=== PATIENT | female | born 1965 | race Two or more races ===

== ENCOUNTER 2017-03-07 22:13 | Emergency (ER) | payer MEDICAID ==
[~2017-03-07] VITALS: Ht 170.2 cm; Wt 122.5 kg
[2017-03-07 22:29] VITALS: BP 162/96
== END 2017-03-08 04:41 | disposition home or self-care (01) ==
LOC: ER 22:13
DX: H61.22 Impacted cerumen, left ear (principal); F17.210 Nicotine dependence, cigarettes, uncomplicated

== ENCOUNTER 2023-06-03 22:48 | Emergency (ER) | payer MEDICAID ==
[~2023-06-03] VITALS: Ht 170.2 cm; Wt 150.1 kg
[2023-06-04] MEDS ORDERED: HYDR-4902 PO ×2 (00:54→13:06)
[2023-06-04] MEDS ORDERED: CLIN-203 PO ×2 (00:54→13:06)
[2023-06-04] MEDS ORDERED: BACDST PO ×2 (00:54→13:06)
[2023-06-04 02:00] VITALS: BP 142/89; PULSE 89; RESP 20; TEMP 98.9; O2SAT 98
[2023-06-04] MEDS: HYDROcodone-ACET 5/325MG TAB PO ONE (02:11)
[2023-06-04] MEDS: CLINDAMYCIN HCL 150 MG CAP PO ONE (02:12)
[2023-06-04] MEDS: cefTRIAXone SOD 1,000 MG VL IM ONE (02:12)
== END 2023-06-04 02:23 | disposition home or self-care (01) ==
LOC: ER 22:48
DX: K04.7 Periapical abscess without sinus (principal); K02.9 Dental caries, unspecified; L03.211 Cellulitis of face; F17.210 Nicotine dependence, cigarettes, uncomplicated
CPT/HCPCS: 71045; 96372; 99283; J0696

== ENCOUNTER 2025-01-16 00:16 | Emergency (ER) | payer MEDICAID ==
[~2025-01-16] VITALS: Ht 172.7 cm; Wt 154.5 kg
[~2025-01-16 00:16] MED LIST: BACDST PO; CLIN-203 PO; HYDR-4902 PO
[2025-01-16 00:22] VITALS: BP 150/106; PULSE 120
[2025-01-16 00:52] VITALS: RESP 18; TEMP 98.3; O2SAT 96
[2025-01-16] MEDS ORDERED: ACET500T58 PO (01:03)
--- NOTE | 2025-01-16 01:04 | ED.PDOC ---
Musculoskeletal HPI Comments 60-year-old female presents to ER with complaints of left foot pain x1 hour. Patient reports she started experiencing 5/10 pain/swelling to left foot with radiation towards the left ankle 1 hour prior to arrival to ER s/p rolling her left foot inwards off a curb while attempting to put of [place] decorations. Denies use of medications for current symptoms and states she has not been able to bear weight on left leg due to left foot pain. Denies numbness/tingling or any further symptoms/complaints Chief Complaint: Lower Extremity Time Seen by MD: 00:34 Primary Care Provider: Kavon Reviewed Notes: Nurses Notes, Medications, Allergies Allergies: Coded Allergies: NO KNOWN ALLERGIES (Unverified , 09/09/13) Home Meds Active Scripts Acetaminophen (Acetaminophen) 500 Mg Tab, 500 MG PO Q4HPRN, #30 TAB 0 Refills Prov:SARA GASCA 01/16/25 Hydrocodone-Acetaminophen (Hydrocodone Bitartrate/AC 5-325 mg) 1 Tab Tab, 1 TAB PO Q6HPRN PRN, #8 TAB as needed for pain Prov:LULU [facility] 06/04/23 Sulfamethoxazole W/Trimethopri (Bactrim Ds Tablet) 1 Tab Tb, 1 TAB PO BID for 10 Days, #20 TAB Prov:[facility]U [facility] 06/04/23 Clindamycin HCl (Clindamycin Hydrochloride) 300 Mg Cap, 1 CAP PO QID for 10 Days, #40 CAP Prov:L[facility]U [facility] 06/04/23 Information Source: Patient Mode of Arrival: Wheelchair Past Medical History PAST MEDICAL HISTORY: HIV Surgical History: Denies all surgeries SPA ASSOCIATE History: No Pertinent SPA ASSOCIATE History Family History Family History: Unknown Social History Smoker: Cigarettes, Less Than 1 Pack/Day Alcohol: Denies ETOH Use Drugs: Denies Drug Use Lives In: Home Constitutional: denies: chills, diaphoresis, fatigue, fever, malaise, sweats, weakness, others EENTM: denies: blurred vision, double vision, ear bleeding, ear discharge, ear drainage, ear pain, ear ringing, eye pain, eye redness, hearing loss, mouth pain, mouth swelling, nasal discharge, nose bleeding, nose congestion, nose pain, photophobia, tearing, throat pain, throat swelling, voice changes, others Respiratory: denies: cough, hemoptysis, orthopnea, SOB at rest, shortness of breath, SOB with excertion, stridor, wheezing, others Cardiovascular: denies: chest pain, dizzy spells, diaphoresis, Dyspnea on ex ertion, edema, irregular heart beat, left arm pain, lightheadedness, palpitations, PND, syncope, others Gastrointestinal: denies: abdomen distended, abdominal pain, blood streaked bowels, constipated, diarrhea, dysphagia, difficulty swallowing, hematemesis, melena, nausea, poor appetite, poor fluid intake, rectal bleeding, rectal pain, vomiting, others Genitourinary: denies: abnormal vagina bleeding, burning, dyspareunia, dysuria, flank pain, frequency, hematuria, incontinence, pain, , vagina discharge, urgency, others Neurological: denies: dizziness, fainting, headache, left sided numbness, left sided weakness, numbness, paresthesia, pre-existing deficit, right sided numbness, right sided weakness, seizure, speech problems, tingling, tremors, weakness, others Musculoskeletal: reports: others (As stated in HPI) Integumetry: reports: others (As stated in HPI) Allergic/Immunocompromised: denies: Difficulty Healing, Frequent Infections, Hives, Itching, others Hematologic/Lymphatic: denies: anemia, blood clots, easy bleeding, easy bruising, swollen glands, others Endocrine: denies: excessive hunger, excessive sweating, excessive thirst, excessive urination, flushing, intolerance to cold, intolerance to heat, unexplained weight gain, unexplained weight loss, others Psychiatric: denies: anxiety, bipolar disorder, depression, hopeless, panic disorder, schizophrenia, sleepless, suicidal, others Physical Exam General Appearance: No Apparent Distress, Obese HEENT: PERRL/EOMI Neck: Full Range of Motion, Non-Tender, Normal Respiratory: Chest Non-Tender, Lungs Clear, No Accessory Muscle Use, No Respiratory Distress, Normal Breath Sounds Cardiovascular: No Murmur, No Gallop, Regular Rate/Rhythm Breast Exam: Deferred Gastrointestinal: NOT DONE Genitalia: Deferred Pelvic: Deferred Rectal: Deferred Extremities: No calf tenderness, Normal capillary refill, Normal range of motion Musculoskeletal : Extremity Location: Foot (TTP/mild swelling noted to lateral aspect of left foot and centralized to plantar surface of left foot. Minimal TTP to left medial malleolus noted. No further skin changes noted. Patient favors right leg on ambulation due to pain localized to left foot/left ankle) Neurologic: Alert, No Motor Deficits, Normal Affect, Normal Mood, No Sensory Deficits Cerebellar Function: Normal Reflexes: Normal Skin: Dry, Normal Color, Warm Peripheral Pulses: 2+ dorsalis pedis (R), 2+ dorsalis pedis (L), 2+ Radial (R), 2+ Radial (L), 2+ Brachial (R), 2+ Brachial (L) Lymphatic: No Adenopathy Was a procedure done? Was a procedure done?: No Sedation Sedation?: No Differential Diagnosis EXT Differential Diagnosis: Fracture, Dislocation, Laceration, Neurovascular injury X-Ray, Labs, Meds, VS Vital Signs Date Time Temp Pulse Resp B/P (MAP) Pulse Ox O2 Delivery O2 Flow Rate FiO2 01/16/25 00:52 98.3 18 96 98.3 01/16/25 00:52 Room Air* 0 21 01/16/25 00:22 98.3 120 18 150/106 96 98.3 PATIENT: APOLLO BAE LACCT: [id number]: [id number] : 1965 LOC: ER ROOM / BED: / AGE / SEX: 60 / F ADM STATUS: REG ER SERVICE ORDERING PHYSICIAN: SARA GASCA PROCEDURE(s): LFOOT - L FOOT 3 VIEW XRAY REASON: left foot pain ORDER NUMBER(s): [id number], ACCESSION NUMBER(s): [id number] EXAM: XY L FOOT 3 VIEW XRAY HISTORY: left foot pain COMPARISON: None TECHNIQUE: Three views of the left foot were performed. FINDINGS/IMPRESSION: No acute fracture or dislocation are identified about the left foot. Nonspecific mild diffuse subcutaneous swelling. Degenerative changes about the foot with a plantar enthesophyte noted. ATED BY: ANGEL MOSLEY MD DICTATED DATE/TIME: 01/16/25128 SIGNED BY: ANGEL MOSLEY MD SIGNED DATE/TIME: 01/16/25128 CC: PATIENT: APOLLO BAE LACCT: [id number] UNIT: [id number] : 1965 LOC: ER ROOM / BED: / AGE / SEX: 60 / F ADM STATUS: REG ER SERVICE ORDERING PHYSICIAN: SARA GASCA PROCEDURE(s): LANKL - L ANKLE 3 VIEW REASON: left ankle pain ORDER NUMBER(s): [id number], ACCESSION NUMBER(s): [id number] CLINICAL HISTORY: left ankle pain TECHNIQUE: 3 views of the left ankle were obtained. COMPARISON: None FINDINGS/IMPRESSION: No acute fracture or dislocation is seen. The ankle mortise is intact. Mild nonspecific subcutaneous swelling about the ankle. ATED BY: ANGEL MOSLEY MD DICTATED DATE/TIME: 01/16/25127 SIGNED BY: ANGEL MOSLEY MD SIGNED DATE/TIME: 01/16/25127 CC: Left foot x-ray reviewed Left ankle x-ray reviewed Tye wrap applied Crutches ordered, patient educated on proper use Patient neurovascularly intact Advised on elevation and alternate ice on/off as needed for pain/swelling Advised to follow up with PCP and orthopedics in 1-2 days Patient verbalized understanding and agreeable with current plan of care Advised to return to ER immediately if symptoms worsen Images Reviewed?: Images reviewed and evaluated by me Time of 1ST Reevaluation: 00:34 Reevaluation 1ST: N/A Patient Education/Counseling: Diagnosis, Treatment, Prognosis, Need For Follow Up Family Education/Counseling: No Family Present Departure 1 Departure Time of Disposition: 01:02 Impression: Primary Impression: Sprain of left foot Qualified Codes: S93.602A - Unspecified sprain of left foot, initial encounter Additional Impression: Left ankle sprain Qualified Codes: S93.402A - Sprain of unspecified ligament of left ankle, initial encounter Disposition: 01 HOME / SELF CARE / HOMELESS Condition: Stable e-Prescriptions Acetaminophen (Acetaminophen) 500 Mg Tab 500 MG PO Q4HPRN, #30 TAB 0 Refills Prov: SARA GASCA 01/16/25 Discharged With: Friend Critical Care Note Critical Care Time?: No Stability Stability form required: No Heart Score Heart Score: Heart Score Response (Comments) Value History N/A 0 EKG N/A 0 Age N/A 0 Risk Factors N/A 0 Troponin N/A 0 Total 0 SARA GASCA Jan 16, 2025 01:04
--- NOTE | 2025-01-16 01:31 | DVH ---
EXAM: XY L FOOT 3 VIEW XRAY HISTORY: left foot pain COMPARISON: None TECHNIQUE: Three views of the left foot were performed. FINDINGS/IMPRESSION: No acute fracture or dislocation are identified about the left foot. Nonspecific mild diffuse subcutaneous swelling. Degenerative changes about the foot with a plantar enthesophyte noted.
--- NOTE | 2025-01-16 01:31 | DVH ---
CLINICAL HISTORY: left ankle pain TECHNIQUE: 3 views of the left ankle were obtained. COMPARISON: None FINDINGS/IMPRESSION: No acute fracture or dislocation is seen. The ankle mortise is intact. Mild nonspecific subcutaneous swelling about the ankle.
== END 2025-01-16 01:58 | disposition home or self-care (01) ==
LOC: ER 00:16
DX: S93.402A Sprain of unspecified ligament of left ankle, initial encounter (principal); S93.602A Unspecified sprain of left foot, initial encounter; F17.210 Nicotine dependence, cigarettes, uncomplicated; Z92.3 Personal history of irradiation; Z21 Asymptomatic human immunodeficiency virus [HIV] infection status; X50.1XXA Overexertion from prolonged static or awkward postures, initial encounter; Y93.89 Activity, other specified; Y92.89 Other specified places as the place of occurrence of the external cause; Y99.8 Other external cause status
CPT/HCPCS: 73610; 73630

== ENCOUNTER 2025-02-10 17:31 | Emergency (ER) | payer MEDICAID ==
[~2025-02-10] VITALS: Ht 170.2 cm; Wt 152.7 kg
[~2025-02-10 17:31] MED LIST changes: +ACET500T58 PO
[2025-02-10 17:32] VITALS: BP 128/94; RESP 18; TEMP 97.9; O2SAT 95
--- NOTE | 2025-02-10 17:41 | ECG ---
[facility] Test Date: 2025-02-10 Test Time: 17:39:36 Pat Name: APOLLO BAE Department: Room: Gender: F Dogman/Woman: ABDIRIZAK : 1965 Requested By: NERY DIAZ Order Number: [id number] Reading MD: Measurements Intervals [place] Rate: 109 P: 27 LA: 166 QRS: 13 QRSD: 98 T: 66 QT: 369 QTc: 498 Interpretive Statements Sinus tachycardia Low voltage, precordial leads Borderline prolonged QT interval Please click the below link to view image of tracing.
[2025-02-10 17:56] VITALS: PULSE 109
--- NOTE | 2025-02-10 17:56 | ED.PDOC ---
SOB-HPI HPI Comments This is a 60 year old female with past medical history of HIV (on ARVs) presenting to the ED with chief complaint of SOB. Patient reports that she has been experiencing SOB with associated nasal congestion and general malaise since 02/06/25. Patient relays that she has taken Mucinex with no relief noted. Patient denies any chest pain, fever, chills, N/V/D, abdominal pain, or headache. Chief Complaint: Shortness of Breath Time Seen by MD: 17:55 Primary Care Provider: Kavon Reviewed notes: Nurses Notes, Medications, Allergies Information Source: Patient Mode of Arrival: Ambulatory Severity: Moderate Timing: Days Duration: Since onset Context: At Rest PE Risk Factors: None History of: None Prehospital treatment: None Modifying Factors: Nothing Associated Signs and Symptoms: Cough, Nasal Congestion If cough with SOB: Non-Productive Past Medical History PAST MEDICAL HISTORY: HIV Surgical History: Denies all surgeries FILTER PRESS PUMPER History: No Pertinent FILTER PRESS PUMPER History Family History Family History: Reviewed,noncontributory to illness, Unknown Social History Smoker: Cigarettes, Less Than 1 Pack/Day Alcohol: Denies ETOH Use Drugs: Denies Drug Use Lives In: Home Constitutional: reports: malaise; denies: chills, diaphoresis, fatigue, fever, sweats, weakness, others EENTM: reports: nose congestion; denies: blurred vision, double vision, ear bleeding, ear discharge, ear drainage, ear pain, ear ringing, eye pain, eye redness, hearing loss, mouth pain, mouth swelling, nasal discharge, nose bl eeding, nose pain, photophobia, tearing, throat pain, throat swelling, voice changes, others Respiratory: reports: shortness of breath; denies: cough, hemoptysis, orthopnea, SOB at rest, SOB with excertion, stridor, wheezing, others Cardiovascular: denies: chest pain, dizzy spells, diaphoresis, Dyspnea on exertion, edema, irregular heart beat, left arm pain, lightheadedness, palpitations, PND, syncope, others Gastrointestinal: denies: abdomen distended, abdominal pain, blood streaked bowels, constipated, diarrhea, dysphagia, difficulty swallowing, hematemesis, melena, nausea, poor appetite, poor fluid intake, rectal bleeding, rectal pain, vomiting, others Genitourinary: denies: abnormal vagina bleeding, burning, dyspareunia, dysuria, flank pain, frequency, hematuria, incontinence, pain, , vagina discharge, urgency, others Neurological: denies: dizziness, fainting, headache, left sided numbness, left sided weakness, numbness, paresthesia, pre-existing deficit, right sided numbness, right sided weakness, seizure, speech problems, tingling, tremors, weakness, others Musculoskeletal: denies: back pain, gout, joint pain, joint swelling, muscle pain, muscle stiffness, neck pain, others Integumetry: denies: bruises, change in color, change in hair/nails, dryness, laceration, lesions, lumps, rash, wounds, others Allergic/Immunocompromised: denies: Difficulty Healing, Frequent Infections, Hives, Itching, others Hematologic/Lymphatic: denies: anemia, blood clots, easy bleeding, easy bruising, swollen glands, others Endocrine: denies: excessive hunger, excessive sweating, excessive thirst, excessive urination, flushing, intolerance to cold, intolerance to heat, unexplained weight gain, unexplained weight loss, others Psychiatric: denies: anxiety, bipolar disorder, depression, hopeless, panic disorder, schizophrenia, sleepless, suicidal, others All Other Systems: Reviewed and Negative Physical Exam General Appearance: No Apparent Distress, Normal HEENT: Normal ENT Inspection, Pharynx Normal, TMs Normal, Other (Nasal congestion) Neck: Full Range of Motion, Non-Tender, Normal, Normal Inspection Respiratory: Chest Non-Tender, Lungs Clear, No Accessory Muscle Use, No Respiratory Distress, Normal Breath Sounds Cardiovascular: No Edema, No JVD, No Murmur, No Gallop, Normal Peripheral Pulses, Regular Rate/Rhythm Breast Exam: Deferred Gastrointestinal: No Organomegaly, Non Tender, No Pulsatile Mass, Normal Bowel Sounds, Soft Genitalia: Deferred Pelvic: Deferred Rectal: Deferred Extremities: No calf tenderness, Normal capillary refill, Normal inspection, Normal range of motion, Non-tender, No pedal edema Musculoskeletal : Apperance: Normal Neurologic: Alert, parking attendant II-XII nml as Tested, No Motor Deficits, Normal Affect, Normal Mood, No Sensory Deficits Cerebellar Function: Normal Reflexes: Normal Skin: Dry, Normal Color, Warm Lymphatic: No Adenopathy EKG EKG : Pulse Rate (adult): 109 Cardiac Rhythm: ST Was a procedure done? Was a procedure done?: No Differential Dx Differential Diagnosis: Bronchitis, Pneumonia, Pharyngitis, URI X-Ray, Labs, Meds, VS Vital Signs Date Time Temp Pulse Resp B/P (MAP) Pulse Ox O2 Delivery O2 Flow Rate FiO2 02/10/25 17:56 109 02/10/25 17:39 109 02/10/25 17:32 97.9 110 18 128/94 95 97.9 Lab Test 02/10/25 18:03 Range/Units White Blood Count 6.0 4.4-10.8 10^3/uL Red Blood Count 5.00 4.0-5.20 10^6/uL Hemoglobin 13.9 12.2-16.2 g/dL Hematocrit 41.1 36.0-46.0 % Mean Corpuscular Volume 82.2 80.0-100.0 fL Mean Corpuscular Hemoglobin 27.8 L 28.0-32.0 pg Mean Corpuscular Hemoglobin Concent 33.8 32.0-36.0 g/dL Red Cell Distribution Width 14.0 11.8-14.3 % Platelet Count 336 140-450 10^3/uL Mean Platelet Volume 7.7 6.9-10.8 fL Neutrophils (%) (Auto) 58.3 37.0-80.0 % Lymphocytes (%) (Auto) 30.1 10.0-50.0 % Monocytes (%) (Auto) 7.5 0.0-12.0 % Eosinophils (%) (Auto) 3.2 0.0-7.0 % Basophils (%) (Auto) 0.9 0.0-2.0 % Neutrophils # (Auto) 3.5 1.6-8.6 10 ^3/uL Lymphocytes # (Auto) 1.8 0.4-5.4 10 ^3/uL Monocytes # (Auto) 0.5 0-1.3 10 ^3/uL Eosinophils # (Auto) 0.2 0-0.8 10 ^3/uL Basophils # (Auto) 0.1 0-0.2 10 ^3/uL Nucleated Red Blood Cells 0.1 % Sodium Level 141 136-145 mmol/L Potassium Level 3.7 3.5-5.1 mmol/L Chloride Level 107 98-107 mmol/L Carbon Dioxide Level 25 20-31 mmol/L Anion Gap 9 5-15 Blood Urea Nitrogen 12 9-23 mg/dL Creatinine 0.89 0.550-1.02 mg/dL Glomerular Filtration Rate Calc 75 >90 mL/min BUN/Creatinine Ratio 13.5 10.0-20.0 Serum Glucose 164 H 74-106 mg/dL Calcium Level 8.9 8.7-10.4 mg/dL Total Bilirubin 0.3 0.2-1.0 mg/dL Aspartate Amino Transferase (AST) 13 13-40 U/L Alanine Aminotransferase (ALT) 15 7-40 U/L Alkaline Phosphatase 137 H 46-116 U/L Troponin I High Sensitivity 4 </=34 ng/L B-Type Natriuretic Peptide 15.99 0-100 pg/mL Total Protein 7.1 5.7-8.2 g/dL Albumin 4.0 3.2-4.8 g/dL Time of 1ST Reevaluation: 18:54 Reevaluation 1ST: Unchanged Patient Education/Counseling: Diagnosis, Treatment Family Education/Counseling: No Family Present SEPSIS Sepsis Screen Date sepsis recognized/suspect: Feb 10, 2025 Time Sepsis recognized/suspect: 1733 Recent Procedure: No On Antibiotic Therapy: No Respiratory Rate >20: No Heart Rate >90: Yes Temp<36 C (96.8 F) or >38.3 C: No SBP <90 or MAP <65 mmHG: No New Acute Mental Status Change: No Is the patient on CPAP, BIPAP,: No Physician Orders Chest Xray 1 View (02/10/25 17:51) Vital Signs Date Time Temp Pulse Resp B/P (MAP) Pulse Ox O2 Delivery O2 Flow Rate FiO2 02/10/25 17:56 109 02/10/25 17:39 109 02/10/25 17:32 97.9 110 18 128/94 95 97.9 Laboratory Tests Test 02/10/25 18:03 White Blood Count 6.0 10^3/uL (4.4-10.8) Departure 1 Departure Time of Disposition: 20:34 (60-year-old female 4 days of nasal congestion, cough, subjective shortness of breath. Patient denies any fevers at home, is afebrile here, chest x-ray was performed which shows no evidence of focal consolidation to suggest a bacterial pneumonia. Although the patient has a history of HIV she is taking ARVs, is well controlled, no findings on chest x- ray to suggest opportunistic infection. Patient with no known history of heart failure, given the reports of shortness of breath consider possible new onset heart failure. BNP is within normal limits. Chest x-ray with no evidence of any increased pulmonary vascular congestion to suggest new onset heart failure. Patient denying any specific chest pain with her symptoms. She has no history of asthma or COPD, has no wheezing on examination, not concerning for either of these etiologies. CBC with no evidence of critical leukocytosis or significant anemia. Metabolic panel with no evidence of any acute electrolyte abnormali ties. Patient was given oral Tylenol, guaifenesin here for symptoms. She is stable for discharge further outpatient symptomatic management. Advised to continue taking NSAIDs and [id number] cough and cold medications as needed.) Impression: Primary Impression: Shortness of breath Additional Impressions: Cough Viral upper respiratory tract infection Disposition: 01 HOME / SELF CARE / HOMELESS Condition: Stable Discharged With: Self Critical Care Note Critical Care Time?: No Stability Stability form required: No Heart Score Heart Score: Heart Score Response (Comments) Value History N/A 0 EKG Normal 0 Age N/A 0 Risk Factors N/A 0 Troponin N/A 0 Total 0 I personally scribed for NERY DIAZ MD ([email or web address]) on 02/10/25 at 17:56. Electronically submitted by Matthew Gupta ([email or web address]). NERY DIAZ MD Feb 10, 2025 17:56
[2025-02-10 18:18] LABS: Hematocrit 41.1 % (36.0-46.0); Hemoglobin 13.9 g/dL (12.2-16.2); Mean Corpuscular Hemoglobin 27.8 pg (28.0-32.0); Mean Corpuscular Volume 82.2 fL (80.0-100.0); Nucleated Red Blood Cells % 0.1 %
--- NOTE | 2025-02-10 18:32 | DVH ---
CHEST RADIOGRAPH INDICATION: sob, cough, eval for PNA TECHNIQUE: Single frontal view of the chest was obtained COMPARISON: XY CHEST PORTABLE on DOS: 06/03/23 FINDINGS: Lines and Tubes: None. Lungs: Clear. Pleura: No pleural effusion or pneumothorax. Cardiomediastinal contours: No abnormality demonstrated. IMPRESSION: No abnormality demonstrated.
[2025-02-10 18:33] LABS: Alanine Aminotransferase 15 U/L (7-40); Albumin 4.0 g/dL (3.2-4.8); Anion Gap 9 (5-15); BUN/Creatinine Ratio 13.5 (10.0-20.0); Blood Urea Nitrogen 12 mg/dL (9-23); Calcium 8.9 mg/dL (8.7-10.4); Carbon Dioxide 25 mmol/L (20-31); Chloride 107 mmol/L (98-107); Potassium 3.7 mmol/L (3.5-5.1); Sodium 141 mmol/L (136-145); Total Protein 7.1 g/dL (5.7-8.2)
[2025-02-10 18:34] LABS: Bilirubin, Total 0.3 mg/dL (0.2-1.0)
[2025-02-10 18:41] LABS: Alkaline Phosphatase 137 U/L (46-116); Glucose 164 mg/dL (74-106)
[2025-02-10] MEDS ORDERED: ACETAMINOPHEN 500 MG TAB or CAP PO ONE (19:30)
== END 2025-02-10 22:07 | disposition home or self-care (01) ==
LOC: ER 17:31
DX: R06.02 Shortness of breath (principal); B97.89 Other viral agents as the cause of diseases classified elsewhere; F17.210 Nicotine dependence, cigarettes, uncomplicated
CPT/HCPCS: 36415; 71045; 80053; 83880; 84484; 85025; 93005